=== PATIENT | female | born 1990 | race Caucasian/White ===

== ENCOUNTER 2020-09-30 19:15 | Inpatient (IN) | payer OTHER ==
[~2020-09-30] VITALS: Ht 160 cm; Wt 72.6 kg
--- NOTE | 2020-09-30 19:31 | NUR ---
SE RECIBE PTE ALERTA Y ORIENTADA X3,REFIERE TENER DOLOR EN EL AREA ABDOMINAL INFERIOR LADO DANIKA ,LE HICIERON UN CT,REFIERE QUE FARLEY MEDICO CHELSEA.SUNSIREE LENARD,LA ROBERT LLAMA AL CHARANJITO AL DR.SAMUEL PIKEYES EL CUAL LA REFIERE A LA KAMI DE ER ,REFIERE QUE LA PTE TIENE APENDICITIS.
--- NOTE | 2020-09-30 22:01 | NUR ---
SE ORIENTA PTE SOBRE EL TRATAMIENTO ORDENADO POR EL DR SCANLON PTE ALERTA Y CONCIENTE POR 3 SE RELAIZAN MUESTRAS DE LABORTORIO Y SE ADMINISTRAN MEDICAMENTO VANESSA ORDENADO
[2020-10-03] MEDS ORDERED: AMOX1TAB5 PO (11:36)
[2020-10-03] MEDS ORDERED: INTESTINEX680 M1 PO (11:37)
== END 2020-10-03 15:46 | disposition home or self-care (01) | DRG 373 ==
LOC: ER 19:15 → SEC-K 20:00 → SURG 20:00
PROVIDERS: ADMIT Surgery; ATTEND Surgery
PROC: BW21ZZZ Computerized Tomography (CT Scan) of Abdomen and Pelvis (ICD-10-PCS; principal; 2020-10-02)
DX: K35.890 Other acute appendicitis without perforation or gangrene (principal); Z20.828 Contact with and (suspected) exposure to other viral communicable diseases

== ENCOUNTER 2020-11-11 05:52 | Day surgery (SDC) | payer OTHER ==
[~2020-11-11 05:52] MED LIST: AMOX1TAB5 PO; INTESTINEX680 M1 PO
[2020-11-11] MEDS ORDERED: PEPCID AC20 MG PO (09:10)
[2020-11-11] MEDS ORDERED: DICY20TA PO (09:10)
[2020-11-11] MEDS ORDERED: PERCOCET 5-3251 EACH PO (09:10)
[2020-11-11] MEDS ORDERED: DICLOFENAC SODI75 MG PO (09:11)
== END 2020-11-11 11:45 | disposition home or self-care (01) ==
LOC: CIR.AMB 05:52
PROVIDERS: ATTEND Surgery
DX: K35.890 Other acute appendicitis without perforation or gangrene (principal); Z20.828 Contact with and (suspected) exposure to other viral communicable diseases